=== PATIENT | male | born 1975 | race Caucasian/White ===

== ENCOUNTER 2018-01-05 03:35 | Inpatient (IN) | payer OTHER ==
[~2018-01-05] VITALS: Ht 180.3 cm; Wt 104.3 kg
[2018-01-05] MEDS ORDERED: ALBU90OI INH (05:42)
[2018-01-05] MEDS ORDERED: LEVSOD100 PO (05:43)
[2018-01-05] MEDS ORDERED: MAGOXI400 PO (05:43)
[2018-01-05] MEDS ORDERED: BUDE10.22 INH (05:43)
[2018-01-05] MEDS ORDERED: SERT25 PO (05:44)
[2018-01-05] MEDS ORDERED: TOPI25 PO (05:46)
[2018-01-05] MEDS ORDERED: SUMA25 PO (05:46)
[2018-01-05 05:58] LABS: Source, Urine Clean Catch
[2018-01-05 06:14] LABS: BASOPHILS ABSOLUTE AUTO 0.07 K/mm3 (0.00-0.23); BASOPHILS PERCENT AUTO 0 % (0-2); EOSINOPHILS ABSOLUTE AUTO 0.12 K/mm3 (0.00-0.68); EOSINOPHILS PERCENT AUTO 1 % (0-6); Hematocrit 43.1 % (37.0-53.0); Hemoglobin 14.8 g/dL (13.5-17.5); IMMATURE GRAN ABSOLUTE AUTO 0.04 K/mm3 (0.00-0.10); IMMATURE GRAN PERCENT AUTO 0 % (0-1); LYMPHOCYTES ABSOLUTE AUTO 3.01 K/mm3 (0.84-5.20); LYMPHOCYTES PERCENT AUTO 18 % (21-46); MONOCYTES ABSOLUTE AUTO 1.14 K/mm3 (0.16-1.47); MONOCYTES PERCENT AUTO 7 % (4-13); Mean Corpuscular HGB 30.8 pg (26.0-34.0); Mean Corpuscular HGB Conc 34.3 g/dL (31.5-36.5); Mean Corpuscular Volume 90 fL (80-100); NEUTROPHILS ABSOLUTE AUTO 12.06 K/mm3 (1.96-9.15); NEUTROPHILS PERCENT AUTO 74 % (41-73); Platelet Count 208 K/mm3 (150-400); RDW Standard Deviation 39.6 fL (35.1-46.3); White Blood Cell Count 16.44 K/mm3 (4.00-11.30)
[2018-01-05 06:15] LABS: Appearance, Urine Clear (Clear); Bilirubin, Urine Neg (Neg); Blood, Urine Neg (Neg); Color, Urine Yellow (P-Yellow); Glucose Qualitative, Urine Neg (Neg); Ketones, Urine Neg (Neg); Leukocyte Esterase, Urine Neg (Neg); Nitrite, Urine Neg (Neg); Protein, Urine Neg (Neg); Urobilinogen, Urine NORM (Normal)
[2018-01-05 06:18] LABS: Alanine Aminotransfer (ALT/SGP 35 U/L (12-78); Albumin, Blood 4.1 g/dL (3.4-5.0); Albumin/Globulin Ratio 1.3 (0.8-1.8); Alk Phos 78 U/L (50-136); Anion Gap 7 mmol/L (6-16); Aspartate Aminotrans (AST/SGOT 20 U/L (12-37); Bilirubin, Total 0.8 mg/dL (0.1-1.0); Blood Urea Nitrogen 13 mg/dL (8-24); Bun/Creatinine Ratio 11.9 (12.0-20.0); CO2, Blood 23 mmol/L (21-32); Chloride, Blood 108 mmol/L (98-108); Creatinine, Blood 1.09 mg/dL (0.60-1.20); Globulin, Blood 3.2 g/dL (2.2-4.0); Glomerular Filtration Rate >60 (60-); Glucose, Blood 111 mg/dL (70-99); Potassium, Blood 3.8 mmol/L (3.5-5.5); Sodium, Blood 138 mmol/L (136-145); Total Protein, Blood 7.3 g/dL (6.4-8.2)
[2018-01-06] MEDS ORDERED: HYDR1TAB94 PO (14:29)
[2018-01-06] MEDS ORDERED: AMOX875 PO (14:30)
== END 2018-01-06 14:46 | disposition home or self-care (01) | DRG 340 ==
LOC: ER 03:35 → SURS 03:46
PROVIDERS: Surgery
PROC: 0DTJ4ZZ Resection of Appendix, Percutaneous Endoscopic Approach (ICD-10-PCS; principal; 2018-01-05 13:00)
DX: K35.3 Acute appendicitis with localized peritonitis (principal); F17.200 Nicotine dependence, unspecified, uncomplicated; J44.9 Chronic obstructive pulmonary disease, unspecified; E03.9 Hypothyroidism, unspecified
CPT/HCPCS: 80053; 81003; 83690; 85025; 88304; 94760; 96374; 96375; 99285; J0295; J1170; J1885; J2250; J2370; J2405; J2710; J3010; J3490; J7030; J7120

== ENCOUNTER 2023-05-18 09:45 | Day surgery (SDC) | payer OTHER ==
[~2023-05-18] VITALS: Ht 170.2 cm; Wt 102.6 kg
[~2023-05-18 09:45] MED LIST: ALBU90OI INH; AMOX875 PO; BUDE10.22 INH; HYDR1TAB94 PO; LEVSOD100 PO; MAGOXI400 PO; SERT25 PO; SUMA25 PO; TOPI25 PO
--- NOTE | 2023-05-18 10:23 | NUR ---
05/18/23 1023 Lilli Akbar 2 ENEMAS COMPLETED, RESULT SHOWED BROWN LIQUID STOOL NOT CLEAR. NOTIFIED RN AND DR. FUENTES OF RESULTS. DR FUENTES IN ROOM TO DISCUSS RESULTS
[2023-05-18] MEDS ORDERED: Flonase 0.05% N16 GM (10:27)
[2023-05-18] MEDS ORDERED: VITAMIN D31000 UNI1 (10:27)
[2023-05-18] MEDS ORDERED: VITAMIN B125000 MC1 (10:27)
[2023-05-18] MEDS ORDERED: FAMO10 (10:27)
[2023-05-18] MEDS ORDERED: OMEP20ER (10:28)
[2023-05-18] MEDS ORDERED: TIOT18 (10:28)
[2023-05-18] MEDS ORDERED: LACT (10:28)
[2023-05-18] MEDS ORDERED: PREG50 (10:28)
--- NOTE | 2023-05-18 10:28 | NUR ---
05/18/23 [email or web address] Elke Naranjo PT GIVEN TWO ENEMAS TO DO AND HIS STOOL IS STILL BROWN AND CANNOT VISUALIZE TO THE BOTTOM. MD FUENTES SPOKE WITH THE PT AND EXPLAINED THE RISKS INVOLVED WITH ATTEMPTING THE COLONOSCOPY IF HE CAN'T SEE WHERE HE IS GOING IN THE COLON. PT WISHES TO ATTEMPT BOTH PROCEDURES AT THIS TIME. MD FUENTES STATED THAT IF AT ANY TIME WHILE ATTEMPTING HIS COLONOSCOPY IF HE THINKS ITS TO RISKY HE WILL ABORT THE PROCEDURE.
[2023-05-18 11:38] VITALS: BP 134/81
== END 2023-05-18 11:39 | disposition home or self-care (01) ==
LOC: ORSCSDS 09:45 → ORD 11:15 → ORSCSDS 11:39 → ORD 12:15
PROVIDERS: Specialist
PROC: 0DBE8ZX Excision of Large Intestine, Via Natural or Artificial Opening Endoscopic, Diagnostic (ICD-10-PCS; principal; 2023-05-18 11:15)
PROC: 0DBL8ZX Excision of Transverse Colon, Via Natural or Artificial Opening Endoscopic, Diagnostic (ICD-10-PCS; principal; 2023-05-18 11:15)
PROC: 0DB68ZX Excision of Stomach, Via Natural or Artificial Opening Endoscopic, Diagnostic (ICD-10-PCS; principal; 2023-05-18 11:15)
PROC: 0DB98ZX Excision of Duodenum, Via Natural or Artificial Opening Endoscopic, Diagnostic (ICD-10-PCS; principal; 2023-05-18 11:15)
PROC: 0DB58ZX Excision of Esophagus, Via Natural or Artificial Opening Endoscopic, Diagnostic (ICD-10-PCS; principal; 2023-05-18 11:15)
DX: R19.7 Diarrhea, unspecified (principal); K21.9 Gastro-esophageal reflux disease without esophagitis; D12.3 Benign neoplasm of transverse colon; K44.9 Diaphragmatic hernia without obstruction or gangrene; K64.8 Other hemorrhoids; L53.9 Erythematous condition, unspecified; J44.9 Chronic obstructive pulmonary disease, unspecified; F43.10 Post-traumatic stress disorder, unspecified; E78.5 Hyperlipidemia, unspecified; Z79.899 Other long term (current) drug therapy
CPT/HCPCS: 88305; 88342; J2704; J7120